=== PATIENT | male | born 1950 | race Caucasian/White ===

== ENCOUNTER → 2017-09-28 | Outpatient (CLI) | payer OTHER ==
--- NOTE | 2017-09-28 13:15 | DIAGNOSTIC IMAGING REPORT ---
ULTRASOUND KIDNEYS AND BLADDER CLINICAL HISTORY: Gross hematuria. COMPARISON STUDY: No priors. TECHNIQUE: Real-time, grayscale, and color flow sonography of the kidneys and bladder is performed. Images are reviewed in the transverse and longitudinal planes. FINDINGS: Kidneys: The kidneys are normal in size and echotexture. The right kidney measures 11.5 x 4.6 x 4.7 cm and the left kidney measures 11.5 x 5.9 x 4.9 cm. There is no hydronephrosis. No shadowing renal calculi are identified. A prominent column of Jed is suggested on the left. There is no sonographic evidence of contour deforming renal mass lesion. No perinephric fluid is identified. Bladder: The bladder is decompressed and not well evaluated. The prostate gland is enlarged and there is median lobe hypertrophy. Ureteral jets were not seen. IMPRESSION: 1. The kidneys are normal in size and without hydronephrosis. 2. The bladder was decompressed and not well evaluated. 3. Prostatomegaly with median lobe hypertrophy. Electronically signed by: Lyndon Buck M.D. 09/28/2017 1:14 PM Dictated Date/Time: 09/28/2017 1:11 PM
== END | disposition home or self-care (01) ==
LOC: C.ULTR 12:22
PROVIDERS: ATTEND Family Medicine
DX: R31.0 Gross hematuria (principal)

== ENCOUNTER → 2017-10-12 | Outpatient (CLI) | payer OTHER | END | disposition home or self-care (01) | LOC: C.PATHSPEC 17:15 | PROVIDERS: ATTEND Urology | DX: R31.9 Hematuria, unspecified (principal) ==

== ENCOUNTER → 2017-10-25 | Outpatient (CLI) | payer OTHER ==
[~2017-10-25] MED LIST: OPTIRAY 320 IV PRN
--- NOTE | 2017-10-25 08:20 | DIAGNOSTIC IMAGING REPORT ---
ABD/PELVIS COMBO HISTORY: 66 years-old Male R31.9 Hematuria acute hematuria COMPARISON: Renal ultrasound 09/28/2017 TECHNIQUE: Multiple axial CT images of the abdomen and pelvis were obtained both with and without the use of 119 mL Optiray 320 IV contrast utilizing hematuria protocol. A dose lowering technique was used consistent with the principals of CHIP. FINDINGS: The imaged inferior cardiac chambers are unremarkable. The imaged lung bases appear clear. Minimal dependent subsegmental bibasilar atelectasis. No pneumatosis or pneumoperitoneum. Low attenuating 1.4 cm circumscribed lesion of the left hepatic lobe suggests hepatic cyst. Additional similar-appearing 3 mm lesion is noted within the hepatic dome may also reflect a hepatic cyst, however is too small to characterize. There is no intrahepatic biliary ductal dilation. The spleen, pancreas, adrenal glands and gallbladder are within normal limits. The noncontrast scan demonstrates no ureteral calculi. There is a punctate nonobstructing calculus of the superior pole right kidney. Mild nonspecific bilateral perinephric stranding is present. No focal filling defects identified within the ureters or renal collecting systems. There are no suspicious renal mass lesions identified. The prostate is enlarged and heterogeneous with central parenchymal calcifications protruding into the base of the urinary bladder and causing mild mass effect. Bilateral seminal vesicles are somewhat heterogeneous with cystic changes noted bilaterally, right greater than left. The urinary bladder is partially decompressed and demonstrates circumferential wall thickening. Mild plaquing of the abdominal aorta without aneurysm. IVC appears unremarkable. Portal vein is patent. There is no bowel obstruction or focal bowel wall thickening. The appendix appears normal. Soft tissues are unremarkable. Bones appear intact. Degenerative changes are noted throughout the spine. IMPRESSION: 1. Punctate nonobstructing calculus of the superior pole right kidney. No ureteral calculi or obstructive uropathy. 2. Prostamegaly causes mass effect upon the floor of the urinary bladder. The bladder also demonstrates mild wall thickening suggesting sequela of chronic bladder outlet obstruction. Correlate with urinalysis to exclude cystitis. 3. No bowel obstruction or focal bowel wall thickening. The above report was generated using voice recognition software. It may contain grammatical, syntax or spelling errors. Electronically signed by: Jose Luis Ramirez M.D. 10/25/2017 8:19 AM Dictated Date/Time: 10/25/2017 8:05 AM
== END | disposition home or self-care (01) ==
LOC: C.CTS 07:29
PROVIDERS: ATTEND Urology
DX: N20.0 Calculus of kidney (principal); N40.1 Benign prostatic hyperplasia with lower urinary tract symptoms

== ENCOUNTER → 2017-10-27 | Outpatient (CLI) | payer OTHER ==
[2017-10-27 09:57] LABS: BLOOD UREA NITROGEN 12 mg/dl (7-18); CREATININE 0.97 mg/dl (0.60-1.40)
== END | disposition home or self-care (01) ==
LOC: C.LAB 08:37
PROVIDERS: ATTEND Urology
DX: R31.9 Hematuria, unspecified (principal)

== ENCOUNTER → 2017-11-04 | Outpatient (CLI) | payer OTHER ==
[~2017-11-04] MED LIST changes: +ASPI81TA28 PO; +GLC/500 PO; +LISI10TA PO; +NITR-5 PO; -OPTIRAY 320 IV PRN; +OXYC-57 PO; +PHEN-876 PO; +SIMV40TA2 PO
--- NOTE | 2017-11-04 13:42 | DIAGNOSTIC IMAGING REPORT ---
CHEST 2 VIEWS ROUTINE CLINICAL HISTORY: N21.0 Bladder [id number] preoperative evaluation COMPARISON STUDY: No previous studies for comparison. FINDINGS: The bones soft tissues and hemidiaphragms are normal. The cardiomediastinal silhouette is normal. The lungs are clear. The pulmonary vasculature is normal. IMPRESSION: Negative chest. The above report was generated using voice recognition software. It may contain grammatical, syntax or spelling errors. Electronically signed by: Domo Mulligan M.D. 11/04/2017 1:40 PM Dictated Date/Time: 11/04/2017 1:40 PM
[2017-11-04 14:40] LABS: BASO % 0.2 %; BASO ABS # 0.02 K/uL (0-0.2); EOS % 2.2 %; EOS ABS # 0.18 K/uL (0-0.5); HEMATOCRIT 48.1 % (42-52); HEMOGLOBIN 16.9 g/dL (14.0-18.0); IG# 0.02 K/uL (0.00-0.02); LYMPH % 31.9 %; LYMPH ABS # 2.59 K/uL (1.2-3.4); MEAN CELL VOLUME 89.7 fL (80-100); MEAN CORPUSCULAR HEMOGLOBIN 31.5 pg (25-34); MEAN CORPUSCULAR HGB CONC 35.1 g/dl (32-36); MEAN PLATELET VOLUME 10.1 fL (7.4-10.4); MONO % 7.5 %; MONO ABS # 0.61 K/uL (0.11-0.59); NEUT ABS # 4.71 K/uL (1.4-6.5); PLATELET COUNT 183 K/uL (130-400); RED CELL DISTRIBUTION WIDTH CV 13.2 % (11.5-14.5); RED CELL DISTRIBUTION WIDTH SD 42.8 fL (36.4-46.3); WHITE BLOOD COUNT 8.13 K/uL (4.8-10.8)
== END | disposition home or self-care (01) ==
LOC: C.CPL 12:46
PROVIDERS: ATTEND Urology
DX: N21.0 Calculus in bladder (principal)

== ENCOUNTER 2017-11-11 05:32 | Day surgery (SDC) | payer OTHER ==
[2017-11-05 15:42] VITALS: BMI 24.0
[~2017-11-11] VITALS: Ht 177.8 cm; Wt 76.4 kg
[~2017-11-11 05:32] MED LIST changes: -NITR-5 PO; -OXYC-57 PO; -PHEN-876 PO
[2017-11-11 05:59] VITALS: BP 147/88; PULSE 72; TEMP 36.8; O2SAT 99; Ht 177.8 cm; Wt 76.4 kg
[2017-11-11] MEDS ORDERED: CIPROFLOXACIN / D5W 400 MG IV SCH (06:00)
[2017-11-11] MEDS ORDERED: LACTATED RINGER'S 1000ML 1,000 ML IV SCH (06:00)
--- NOTE | 2017-11-11 06:52 | History & Physical Bridge Note ---
H&P Re-Evaluation Bridge Note: I have examined the patient, reviewed the History & Physical and in the interval since the performance of the History & Physical I have noted the following changes of clinical significance: No changes noted
[2017-11-11] MEDS ORDERED: FENTANYL CITRATE INJ 50 MCG/1 ML 2 ML VIAL ONE (06:53)
[2017-11-11] MEDS ORDERED: MIDAZOLAM HCL 1 MG/ML 2ML VIAL ONE (06:53)
[2017-11-11] MEDS ORDERED: DEXAMETHASONE SOD INJ 4 MG/ML VIAL ONE (08:42)
[2017-11-11] MEDS ORDERED: PROPOFOL IV EMULSION 10 MG/ML 20 ML VIAL IV ONE (08:42)
[2017-11-11] MEDS ORDERED: LIDOCAINE HCL 2% 2 ML VIAL (20MG/ML) ONE (08:42)
[2017-11-11] MEDS ORDERED: ONDANSETRON INJ 2 MG/ML 2 ML VIAL ONE (08:42)
[2017-11-11] MEDS ORDERED: ATROPINE SULFATE 0.1 MG/ML 5ML SYR IV PRN (08:45)
[2017-11-11] MEDS ORDERED: ONDANSETRON INJ 2 MG/ML 2 ML VIAL IV PRN (08:45)
[2017-11-11] MEDS ORDERED: KETOROLAC TROMETHAMINE 30 MG/ML VIAL IV. PRN (08:45)
[2017-11-11] MEDS ORDERED: FENTANYL CITRATE INJ 50 MCG/1 ML 2 ML VIAL IV PRN (08:45)
--- NOTE | 2017-11-11 09:04 | [facility] Post Operative Brief Note ---
Immediate Operative Summary Operative Date Nov 11, 2017. Pre-Operative Diagnosis 1. Hematuria 2. Bladder calculus 3. Benign prostatic hyperplasia with urinary obstruction and other lower urinary tract symptoms Post-Operative Diagnosis 1. Hematuria 2. Benign prostatic hyperplasia with urinary obstruction and other lower urinary tract symptoms Procedure(s) Performed Urethral Dilation, Cystoscopy, Transurethral Resection of Prostate Surgeon Dr. Boris Flores Animal Attendant Surgeon(s) None Estimated Blood Loss 5 mL Findings See Below Obstructing prostate No bladder stone found probably passed Specimens Permanent specimens A: Prostate chips Drains 20f juarez Anesthesia Type General Complication(s) none Disposition Accompanied Pt To Recover: yes Disposition: Recovery Room / PACU
[2017-11-11] MEDS ORDERED: NITR-5 PO (09:06)
[2017-11-11] MEDS ORDERED: PHEN-876 PO (09:06)
[2017-11-11] MEDS ORDERED: OXYC-57 PO (09:06)
--- NOTE | 2017-11-11 09:09 | Discharge Instructions ---
Discharge Instructions Date of Service Nov 11, 2017. Visit Reason for Visit: Bladder Calculus and BPH Discharge Discharge Diagnosis / Problem: BPH Discharge Goals Goal(s): Therapeutic intervention Activity Recommendations Activity Limitations: per Instructions/Follow-up section Lifting Limitations: no more than 10 pounds Exercise/Sports Limitations: until after follow-up appointment May Resume Sexual Activity: after one week Shower/Bathe: no limitations Driving or Machine Use: resume 1 day after discharge Anesthesia . Post Anesthesia Instructions: If you have had General Anesthesia or IV Sedation: * Do not drive today. * Resume driving when surgeon permits. * Do not make important decisions or sign legal documents today. * Call surgeon for: 1. Temperature elevations greater than 101 degrees F. 2. Uncontrollable pain. 3. Excessive bleeding. 4. Persistent nausea and vomiting. 5. Medication intolerance (nausea, vomiting or rash). * For nausea and vomiting use only clear liquids such as: tea, soda, bouillon until nausea subsides, then gradually increase diet as tolerated. * If you have any concerns or questions, call your surgeon's office. If physician is unavailable and it is an emergency, call 911 or go to the nearest emergency room. . Instructions / Follow-Up Instructions / Follow-Up You can remove the catheter on Wednesday like I showed you there is 30 cc of water in the balloon so 3 syringe fulls Diet Recommendations Recommended Home Diet: resume previous diet Procedures Procedures Performed: Urethral Dilation, Cystoscopy, Transurethral Resection of Prostate Pending Studies Studies pending at discharge: no Medical Emergencies . Who to Call and When: Medical Emergencies: If at any time you feel your situation is an emergency, please call 911 immediately. . Non-Emergent Contact Non-Emergency issues call your: Urologist Call Non-Emergent contact if: temperature is above 101.5, your pain is not controlled . . "Provider Documentation" section prepared by Boris Flores. . [place] Drug Monitoring Program Search Results: patient reviewed within database
[2017-11-11] MEDS ORDERED: OXYCODONE/ACETAMINOPHEN 5-325 TAB PO PRN (09:15)
[2017-11-11 09:50] VITALS: BP 148/87; PULSE 69; TEMP 36.5; O2SAT 97
[2017-11-11 10:24] VITALS: BP 155/88; PULSE 76; TEMP 36.5; O2SAT 98
--- NOTE | 2017-11-11 10:48 | [facility] Operative Report ---
Operative Report Operative Date Nov 11, 2017. Pre-Operative Diagnosis 1. Hematuria 2. Bladder calculus 3. Benign prostatic hyperplasia with urinary obstruction and other lower urinary tract symptoms Post-Operative Diagnosis 1. Hematuria 2. Benign prostatic hyperplasia with urinary obstruction and other lower urinary tract symptoms Procedure(s) Performed Urethral Dilation, Cystoscopy, Transurethral Resection of Prostate Surgeon Dr. Boris Flores Brick Molder Hand Surgeon(s) None Estimated Blood Loss 5 mL Findings Obstructing prostate No bladder stone found probably passed Cystoscopy showed a normal anterior urethra prosthetic fossa was obstructing with a lot of regrowth of prostate tissue and a very elevated bladder neck a lot of the prostate tissue was indenting into the bladder causing a ball-valve type situation. Both ureteral orifices were effluxing clear urine. There is no bladder stone seen presumably this past Specimens Permanent specimens A: Prostate chips Drains 20f juarez Anesthesia Type General Complication(s) none Disposition yes Recovery Room / PACU Indications Patient is a 67-year-old white male who on workup for hematuria had a bladder stone on cystoscopy although it was small he also had a lot of voiding symptoms from an obstructing prostate. He has had a TURP in the past but has a lot of regrowth Description of Procedure After the induction of an adequate general anesthetic and appropriate timeout patient was placed in the dorsal lithotomy position. Lower abdomen and genitalia were prepped with Hibiclens and draped in a sterile fashion. Using a 22 Argentine scope routine cystoscopic exam was performed with the above-noted findings with 30 and 70 lenses. No stone was seen. Next using a 24 Argentine resection scope and combination of cautery loop and button electrode prostatic tissue was resected from the bladder neck to the verumontanum. Care was taken to avoid injury to either ureteral orifice. Patient had a lot of prostate extending into the bladder. After completing the resection and vaporization Libertadik evacuator was used to remove the chips in the bladder any bleeding points were electrocoagulated. Bladder was reinspected again no stone was seen both ureteral orifices were effluxing clear urine. Bladder was filled patient voided with a good stream on Crede maneuver. 20 Argentine Juarez catheter inserted per urethra and the bladder and hooked to gravity drainage. All needle sponge and instrument counts were correct at the end of the case. Patient tolerated the procedure well and was taken to the recovery room in stable condition. I attest to the content of the Intraoperative Record and any orders documented therein. Any exceptions are noted below.
[2017-11-11 10:50] VITALS: BP 146/88; PULSE 74; TEMP 36.5; O2SAT 98
--- NOTE | 2017-11-11 11:58 | Anesthesiology Progress Note ---
Anesthesia Post Op Note Date & Time Nov 11, 2017 at 11:58 Vital Signs Pain Intensity: 5 Vital Signs Past 12 Hours Date Time Temp Pulse Resp B/P (MAP) Pulse Ox O2 Delivery O2 Flow Rate FiO2 11/11/17 10:50 36.5 74 16 146/88 98 Room Air 11/11/17 10:24 36.5 76 16 155/88 98 Room Air 11/11/17 09:50 36.5 69 16 148/87 97 Room Air 11/11/17 09:39 69 11 99 11/11/17 09:39 69 11 11/11/17 09:36 152/83 11/11/17 09:34 70 17 11/11/17 09:34 70 17 99 11/11/17 09:33 36.3 68 16 152/83 (92) 99 Room Air 11/11/17 09:32 151/92 11/11/17 09:29 72 17 97 11/11/17 09:29 70 17 11/11/17 09:26 149/85 11/11/17 09:24 72 18 11/11/17 09:24 72 18 95 11/11/17 09:23 71 13 99 11/11/17 09:23 70 13 11/11/17 09:23 70 13 11/11/17 09:23 71 13 99 11/11/17 09:22 148/82 11/11/17 09:22 148/82 11/11/17 09:18 71 16 11/11/17 09:18 71 16 11/11/17 09:18 71 16 98 11/11/17 09:18 71 16 98 11/11/17 09:16 139/90 11/11/17 09:16 139/90 11/11/17 09:13 68 15 98 11/11/17 09:13 68 15 11/11/17 09:13 68 15 98 11/11/17 09:13 68 15 11/11/17 09:12 148/91 11/11/17 09:12 148/91 11/11/17 09:08 73 11 11/11/17 09:08 73 11 11/11/17 09:08 72 11 100 11/11/17 09:08 72 11 100 11/11/17 09:06 143/94 11/11/17 09:06 143/94 11/11/17 09:05 159/91 3/22/18 09:05 159/91 11/11/17 08:58 36.2 68 16 159/91 (111) 100 Oxymask 10 11/11/17 05:59 36.8 72 16 147/88 (107) 99 Room Air Notes Mental Status: alert / awake / arousable, participated in evaluation Pt Amnestic to Procedure: Yes Nausea / Vomiting: adequately controlled Pain: adequately controlled Airway Patency, RR, SpO2: stable & adequate BP & HR: stable & adequate Hydration State: stable & adequate Anesthetic Complications: no major complications apparent
== END 2017-11-11 11:30 | disposition home or self-care (01) ==
LOC: C.ACU 05:32
PROVIDERS: ATTEND Urology
DX: N40.1 Benign prostatic hyperplasia with lower urinary tract symptoms (principal); N13.8 Other obstructive and reflux uropathy; N21.0 Calculus in bladder; K21.9 Gastro-esophageal reflux disease without esophagitis; I10 Essential (primary) hypertension; E11.9 Type 2 diabetes mellitus without complications; E78.5 Hyperlipidemia, unspecified; Z79.82 Long term (current) use of aspirin; Z86.718 Personal history of other venous thrombosis and embolism; Z82.49 Family history of ischemic heart disease and other diseases of the circulatory system; Z83.3 Family history of diabetes mellitus